=== PATIENT | male | born 1940 | race Caucasian/White ===

== ENCOUNTER 2024-08-28 12:59 | Outpatient (RCR) | payer MEDICARE, BC, SELFPAY | END 2025-02-24 23:59 | disposition home or self-care (01) | LOC: CCIC 12:59 | PROVIDERS: PCP Family Medicine; Referring Provider Family Medicine; Visit Provider Radiology Radiation Oncology | DX: C15.9 Malignant neoplasm of esophagus, unspecified (principal) | CPT/HCPCS: 99211 ==